=== PATIENT | female | born 1980 | race Two or more races ===

== ENCOUNTER 2016-10-29 19:58 | Inpatient (IN) | payer MEDICAID ==
[~2016-10-29] VITALS: Ht 149.9 cm; Wt 60.1 kg
[~2016-10-29 19:58] MED LIST: AMOX-263 PO
[2016-10-29 20:46] LABS: Urine RBC None Seen /hpf (0 - 4)
[2016-10-29 20:56] LABS: Basophils # (auto) 0.1 uL; Eosinophils # (auto) 0 uL; Eosinophils % (auto) 0.3 % (0.0-7.0); Hematocrit 34.2 % (36.0-46.0); Hemoglobin 11.5 g/dL (12.2-16.2); Mean Corpuscular Hemoglobin 28.9 pg (28.0-32.0); Mean Corpuscular Hgb Conc. 33.7 g/dL (32.0-36.0); Mean Corpuscular Volume 85.8 fL (80.0-100.0); Mean Platelet Volume 10.2 fL (7.4-10.4); Monocytes # (auto) 0.4 uL; Monocytes % (auto) 7.1 % (0.0-12.0); Neutrophils # (auto) 3.6 uL; Neutrophils % (auto) 58.6 % (37.0-80.0); Platelet Count (auto) 247 10^3/uL (140-450); Red Cell Distribution Width 13.6 % (11.6-16.0); White Blood Cell 6.2 10^3/uL (4.4-10.8)
[2016-10-29 21:03] LABS: Urine Bilirubin Negative (Negative); Urine Blood Negative /uL (Negative); Urine Color Yellow (Yellow); Urine Glucose Normal (Normal); Urine Ketone Negative (Negative); Urine Mucus FEW (None Seen); Urine Nitrite Negative (Negative); Urine Squamous Epithelial Cell FEW /hpf (<5)
[2016-10-29 21:19] LABS: Albumin 2.7 g/dL (3.4-5.0); BUN/Creatinine Ratio 16.3; Bilirubin, Total 0.1 mg/dL (0.2-1.0); Calcium 8.3 mg/dL (8.5-10.1); Magnesium 1.8 mg/dL (1.6-2.6); Potassium 3.6 mmol/L (3.5-5.1); Total Protein 6.4 g/dL (6.4-8.2)
[2016-10-30] MEDS ORDERED: SODIUM CHLORIDE 0.9% 1,000 ML IV ONE ×2 (02:00→04:30)
[2016-10-30] MEDS ORDERED: ONDANSETRON HCL 4 MG/2 ML VIAL IV ONE (02:00)
[2016-10-30] MEDS ORDERED: ACETAMINOPHEN 500 MG TAB PO PRN (04:30)
[2016-10-30] MEDS ORDERED: ONDANSETRON HCL 4 MG/2 ML VIAL IV PRN (04:30)
[2016-10-30] MEDS ORDERED: cefTRIAXone 1GM/50ML D5W 50 ML IV SCH (06:00)
[2016-10-30 06:27] VITALS: BP 106/61
[2016-10-30 09:00] VITALS: BP 106/61
[2016-10-30 13:00] VITALS: BP 106/58
[2016-10-30 14:40] VITALS: BP 106/58
== END 2016-10-30 15:20 | disposition home or self-care (01) | DRG 566 ==
LOC: ER 20:07 → OVERFLOW 20:08 → EAST 10-30 06:00
PROVIDERS: ADMIT Family Medicine; ATTEND Internal Medicine
DX: O99.612 Diseases of the digestive system complicating pregnancy, second trimester (principal); E44.1 Mild protein-calorie malnutrition; K80.20 Calculus of gallbladder without cholecystitis without obstruction; O25.12 Malnutrition in pregnancy, second trimester; O99.012 Anemia complicating pregnancy, second trimester; D64.9 Anemia, unspecified; O23.42 Unspecified infection of urinary tract in pregnancy, second trimester; K52.9 Noninfective gastroenteritis and colitis, unspecified; K86.1 Other chronic pancreatitis; O99.282 Endocrine, nutritional and metabolic diseases complicating pregnancy, second trimester; O26.852 Spotting complicating pregnancy, second trimester; E86.0 Dehydration; Z68.28 Body mass index [BMI] 28.0-28.9, adult; Z3A.16 16 weeks gestation of pregnancy; Z83.3 Family history of diabetes mellitus; Z82.49 Family history of ischemic heart disease and other diseases of the circulatory system; Z80.9 Family history of malignant neoplasm, unspecified; O09.32 Supervision of pregnancy with insufficient antenatal care, second trimester; O21.8 Other vomiting complicating pregnancy
CPT/HCPCS: 36415; 76705; 76805; 80053; 81001; 83690; 83735; 84702; 85025; 85049; 87086; 87088; 87186; 94761; 96361; 96374; J0696; J2405

== ENCOUNTER → 2016-11-20 | Outpatient (CLI) | payer MEDICAID ==
[2016-11-20 09:36] LABS: Basophils # (auto) 0 uL; Basophils % (auto) 0.3 % (0.0-2.0); Eosinophils # (auto) 0 uL; Eosinophils % (auto) 0.5 % (0.0-7.0); Hemoglobin 9.8 g/dL (12.2-16.2); Lymphocytes # (auto) 2.1 uL; Mean Corpuscular Hemoglobin 27.1 pg (28.0-32.0); Mean Corpuscular Hgb Conc. 31.7 g/dL (32.0-36.0); Mean Corpuscular Volume 85.4 fL (80.0-100.0); Mean Platelet Volume 10.9 fL (7.4-10.4); Monocytes # (auto) 0.4 uL; Neutrophils # (auto) 4.8 uL; Neutrophils % (auto) 65.2 % (37.0-80.0); Platelet Count (auto) 256 10^3/uL (140-450); Red Cell Distribution Width 13.8 % (11.6-16.0); White Blood Cell 7.4 10^3/uL (4.4-10.8)
== END | disposition home or self-care (01) ==
LOC: LAB 08:40
PROVIDERS: ATTEND Obstetrics & Gynecology
DX: Z34.80 Encounter for supervision of other normal pregnancy, unspecified trimester (principal); O99.810 Abnormal glucose complicating pregnancy
CPT/HCPCS: 36415; 82951; 83036; 84144; 84702; 85025; 86703; 86762; 86850; 86900; 86901; 87086; 87340; G0434

== ENCOUNTER 2017-01-20 13:20 | Observation (INO) | payer MEDICAID ==
[2017-01-20 14:20] LABS: Urine Bilirubin Negative (Negative); Urine Blood Negative /uL (Negative); Urine Color Yellow (Yellow); Urine Glucose Normal (Normal); Urine Ketone Negative (Negative); Urine Mucus FEW (None Seen); Urine Nitrite Negative (Negative); Urine RBC 1 /hpf (0 - 4); Urine Squamous Epithelial Cell FEW /hpf (<5); Urine Urobilinogen Normal (Negative); Urine pH 6.5 (5.0-8.0)
== END 2017-01-20 14:40 | disposition home or self-care (01) | DRG 566 ==
LOC: LDRP 13:20
PROVIDERS: ADMIT Obstetrics & Gynecology; ATTEND Obstetrics & Gynecology
DX: O26.892 Other specified pregnancy related conditions, second trimester (principal); R10.2 Pelvic and perineal pain; R10.30 Lower abdominal pain, unspecified; N89.8 Other specified noninflammatory disorders of vagina; Z3A.27 27 weeks gestation of pregnancy
CPT/HCPCS: 59025; 81001; 82962; G0378

== ENCOUNTER 2017-02-20 12:05 | Observation (INO) | payer MEDICAID ==
[~2017-02-20] VITALS: Ht 149.9 cm; Wt 69.9 kg
[2017-02-20] MEDS ORDERED: ACETAMINOPHEN 325 MG TAB PO ONE (13:15)
[2017-02-20 13:38] LABS: Urine Bilirubin Negative (Negative); Urine Blood Negative /uL (Negative); Urine Color Yellow (Yellow); Urine Glucose Normal (Normal); Urine Ketone Negative (Negative); Urine Nitrite Negative (Negative); Urine RBC <1 /hpf (0 - 4); Urine Squamous Epithelial Cell FEW /hpf (<5); Urine Urobilinogen Normal (Negative); Urine pH 6.5 (5.0-8.0)
== END 2017-02-20 14:30 | disposition home or self-care (01) | DRG 566 ==
LOC: LDRP 12:05
PROVIDERS: ADMIT Specialist; ATTEND Specialist
DX: O26.893 Other specified pregnancy related conditions, third trimester (principal); R51 Headache; R10.30 Lower abdominal pain, unspecified; Z3A.31 31 weeks gestation of pregnancy
CPT/HCPCS: 59025; 76805; 80307; 81001; 81002; 82962; 94760; G0378

== ENCOUNTER 2017-03-09 05:24 | Emergency (ER) | payer MEDICAID ==
[~2017-03-09] VITALS: Ht 149.9 cm; Wt 71.2 kg
[2017-03-09 05:30] VITALS: BP 122/68
[2017-03-09 06:28] LABS: Basophils # (auto) 0 uL; Basophils % (auto) 0.1 % (0.0-2.0); DEFINITIVE VIEW TRANSMISSION; Eosinophils # (auto) 0.1 uL; Eosinophils % (auto) 0.8 % (0.0-7.0); Hematocrit 32.2 % (36.0-46.0); Hemoglobin 10.4 g/dL (12.2-16.2); Lymphocytes # (auto) 3.2 uL; Lymphocytes % (auto) 34.4 % (10.0-50.0); Mean Corpuscular Hemoglobin 25.2 pg (28.0-32.0); Mean Corpuscular Hgb Conc. 32.2 g/dL (32.0-36.0); Mean Corpuscular Volume 78.5 fL (80.0-100.0); Mean Platelet Volume 10.8 fL (7.4-10.4); Monocytes # (auto) 0.5 uL; Monocytes % (auto) 4.9 % (0.0-12.0); Neutrophils # (auto) 5.5 uL; Neutrophils % (auto) 59.8 % (37.0-80.0); Platelet Count (auto) 284 10^3/uL (140-450); Red Cell Distribution Width 16.6 % (11.6-16.0); SUSPECT VIEW TRANSMISSION; White Blood Cell 9.3 10^3/uL (4.4-10.8)
[2017-03-09 06:41] LABS: Partial Thromboplastin Time 23.6 sec (22.64-33.71); Prothrombin Time 9.6 sec (9.37-12.3)
[2017-03-09 06:42] LABS: INR 0.88 (0.9-1.15)
[2017-03-09 06:45] LABS: Albumin 2.2 g/dL (3.4-5.0); Anion Gap 12 (5-15); Blood Urea Nitrogen 7 mg/dL (7-18); Calcium 8.9 mg/dL (8.5-10.1); Carbon Dioxide 20 mmol/L (21-32); Chloride 110 mmol/L (98-107); Glucose 99 mg/dL (74-106); Magnesium 1.8 mg/dL (1.6-2.6); Potassium 3.8 mmol/L (3.5-5.1); Sodium 142 mmol/L (136-145)
[2017-03-09 06:47] LABS: Aspartate Aminotransferase 21 U/L (15-37); BUN/Creatinine Ratio 10.9; GFR African American 136 mL/min; GFR Non-African American 112 mL/min
[2017-03-09 06:52] LABS: Alkaline Phosphatase 187 U/L (45-117); Bilirubin, Total 0.2 mg/dL (0.2-1.0); Total Protein 6.6 g/dL (6.4-8.2)
== END 2017-03-09 09:52 | disposition left against medical advice (07) ==
LOC: ER 05:25
DX: O26.893 Other specified pregnancy related conditions, third trimester (principal); R07.9 Chest pain, unspecified; Z3A.35 35 weeks gestation of pregnancy; Z53.21 Procedure and treatment not carried out due to patient leaving prior to being seen by health care provider
CPT/HCPCS: 36415; 80053; 83735; 84484; 84702; 85025; 85610; 85730; 93005

== ENCOUNTER 2017-03-12 23:24 | Observation (INO) | payer MEDICAID | END 2017-03-13 01:04 | disposition home or self-care (01) | DRG 566 | LOC: LDRP 23:24 | PROVIDERS: ADMIT Specialist; ATTEND Specialist | DX: O42.913 Preterm premature rupture of membranes, unspecified as to length of time between rupture and onset of labor, third trimester (principal); Z3A.34 34 weeks gestation of pregnancy | CPT/HCPCS: 59025; 76805; 81002; 82948; 82962; G0378 ==

== ENCOUNTER 2018-07-12 13:31 | Observation (INO) | payer MEDICAID ==
[~2018-07-12] VITALS: Ht 149.9 cm; Wt 60.3 kg
[2018-07-12 14:30] LABS: Basophils # (auto) 0 uL; Basophils % (auto) 0.5 % (0.0-2.0); Eosinophils # (auto) 0 uL; Eosinophils % (auto) 0.1 % (0.0-7.0); Hematocrit 39.6 % (36.0-46.0); Hemoglobin 12.6 g/dL (12.2-16.2); Lymphocytes # (auto) 1.4 uL; Lymphocytes % (auto) 33.4 % (10.0-50.0); Mean Corpuscular Hemoglobin 27.9 pg (28.0-32.0); Mean Corpuscular Hgb Conc. 31.9 g/dL (32.0-36.0); Mean Corpuscular Volume 87.4 fL (80.0-100.0); Monocytes # (auto) 0.3 uL; Monocytes % (auto) 7.8 % (0.0-12.0); Neutrophils # (auto) 2.5 uL; Neutrophils % (auto) 58.2 % (37.0-80.0); Platelet Count (auto) 259 10^3/uL (140-450); Red Blood Cells 4.53 10^6/uL (4.0-5.20); White Blood Cell 4.3 10^3/uL (4.4-10.8)
[2018-07-12 14:33] LABS: Urine WBC None Seen /hpf (0 - 5)
[2018-07-12 14:49] LABS: Albumin 3.5 g/dL (3.4-5.0); BUN/Creatinine Ratio 14.5; Bilirubin, Total 0.3 mg/dL (0.2-1.0); Calcium 8.1 mg/dL (8.5-10.1); Potassium 3.6 mmol/L (3.5-5.1); Total Protein 7.6 g/dL (6.4-8.2)
[2018-07-12 14:52] LABS: Urine Amorphous Crystal MANY /hpf (None Seen); Urine Bacteria NONE SEEN /hpf (None Seen); Urine Blood 1+ /uL (Negative); Urine Mucus FEW (None Seen); Urine Specific Gravity 1.034 (1.001-1.035)
[2018-07-12 14:54] LABS: Amphetamine Screen, Urine NEGATIVE (NEGATIVE); Barbiturate Scree,Urine NEGATIVE (NEGATIVE); Benzodiazephine Screen, Urine NEGATIVE (NEGATIVE); Cannabinoid Screen, Urine NEGATIVE (NEGATIVE); Cocaine Screen, Urine NEGATIVE (NEGATIVE); Opiate Scree,Urine NEGATIVE (NEGATIVE); Phencyclidine Screen, Urine NEGATIVE (NEGATIVE)
[2018-07-12] MEDS ORDERED: SODIUM CHLORIDE 0.9% 1,000 ML IVB ONE (16:14)
[2018-07-12] MEDS ORDERED: KETOROLAC TROMETH 30 MG/ML 1ML VIAL IV ONE (16:15)
[2018-07-12] MEDS ORDERED: ONDANSETRON HCL 4 MG/2 ML VIAL IV ONE (16:15)
[2018-07-12 17:29] LABS: Amylase 65 U/L (25-115); Lipase 177 U/L (73-393)
[2018-07-12 21:28] VITALS: BP 110/78
== END 2018-07-12 21:28 | disposition home or self-care (01) | DRG 249 ==
LOC: ER 13:37 → OVERFLOW 13:38 → ER 21:28
PROVIDERS: ADMIT Family Medicine; ATTEND Family Medicine
DX: K52.9 Noninfective gastroenteritis and colitis, unspecified (principal); K80.20 Calculus of gallbladder without cholecystitis without obstruction; F15.10 Other stimulant abuse, uncomplicated; N39.0 Urinary tract infection, site not specified; Z82.49 Family history of ischemic heart disease and other diseases of the circulatory system; Z83.3 Family history of diabetes mellitus
CPT/HCPCS: 36415; 71046; 80053; 80307; 81001; 82150; 83690; 85025; 96361; 96374; 96375; G0378; J1885; J2405

== ENCOUNTER 2020-07-24 03:03 | Emergency (ER) | payer MEDICAID ==
[~2020-07-24] VITALS: Ht 149.9 cm; Wt 63.5 kg
[2020-07-24] MEDS ORDERED: KETOROLAC TROMETH 60MG/2ML VIAL IM ONE (03:45)
[2020-07-24 06:38] VITALS: BP 158/81
[2020-07-24] MEDS ORDERED: ACETAMINOPHEN 500 MG TAB PO ONE (10:44)
== END 2020-07-24 07:35 | disposition left against medical advice (07) ==
LOC: ER 03:08
DX: R07.89 Other chest pain (principal); Z53.21 Procedure and treatment not carried out due to patient leaving prior to being seen by health care provider
CPT/HCPCS: 93005

== ENCOUNTER 2020-11-07 13:42 | Emergency (ER) | payer MEDICAID ==
[~2020-11-07] VITALS: Ht 149.9 cm; Wt 68.0 kg
[2020-11-07 13:44] VITALS: BP 114/81
[2020-11-07] MEDS ORDERED: ONDANSETRON HCL 4 MG/2 ML VIAL IV ONE (14:15)
[2020-11-07] MEDS ORDERED: MORPHINE SULFATE 4 MG/ML SYR/VIAL IV ONE (14:15)
== END 2020-11-07 16:05 | disposition left against medical advice (07) ==
LOC: ER 13:42
DX: R10.11 Right upper quadrant pain (principal); F15.10 Other stimulant abuse, uncomplicated; Z87.440 Personal history of urinary (tract) infections

== ENCOUNTER 2024-05-16 09:12 | Inpatient (IN) | payer MEDICAID ==
[~2024-05-16] VITALS: Ht 149.9 cm; Wt 79.5 kg
[2024-05-16 09:40] LABS: Urine Bacteria None Seen /hpf (None Seen)
[2024-05-16 09:57] LABS: Urine Blood Negative /uL (Negative); Urine Clarity Clear (Clear); Urine Color Yellow (Yellow); Urine Mucus FEW (None Seen); Urine Protein, UAD TRACE (Negative); Urine Specific Gravity 1.026 (1.001-1.035); Urine Urobilinogen 3 mg/dL (Negative); Urine WBC 1 /hpf (0 - 5)
[2024-05-16 10:03] VITALS: PULSE 53; RESP 11; O2SAT 98
[2024-05-16] MEDS ORDERED: ACETAMINOPHEN 325 MG TAB PO PRN (13:00)
[2024-05-16] MEDS ORDERED: HYDROmorphone HCL 2 MG/ML VL/or syr IV PRN (13:00)
[2024-05-16] MEDS ORDERED: DOCUSATE SOD 100 MG CAP PO PRN (13:00)
[2024-05-16] MEDS ORDERED: NITROGLYCERIN 0.4 MG SL TAB SL PRN (13:00)
[2024-05-16 13:36] LABS: Hematocrit 43.3 % (36.0-46.0); Hemoglobin 14.7 g/dL (12.2-16.2); Mean Corpuscular Hemoglobin 30.1 pg (28.0-32.0); Mean Corpuscular Hgb Conc. 33.8 g/dL (32.0-36.0); Red Blood Cells 4.87 10^6/uL (4.0-5.20); Red Cell Distribution Width 14.8 % (11.8-14.3); White Blood Cell 3.5 10^3/uL (4.4-10.8)
[2024-05-16] MEDS: HYDROcodone-ACET 5/325MG TAB PO PRN (13:36)
[2024-05-16 13:38] LABS: Band Neutrophils % (manual) 0; Basophils % (manual) 0 (0.0-2.0); Blast Cells 0; Metamyelocytes % 0; Myelocytes % 0; Promyelocytes % 0
[2024-05-16 13:46] LABS: Alanine Aminotransferase 107 U/L (7-40); Albumin 4.1 g/dL (3.2-4.8); Alkaline Phosphatase 138 U/L (46-116); Anion Gap 7 (5-15); Aspartate Aminotransferase 115 U/L (13-40); BUN/Creatinine Ratio 8.5 (10.0-20.0); Bilirubin, Total 0.4 mg/dL (0.2-1.0); Blood Urea Nitrogen 6 mg/dL (9-23); Calcium 8.9 mg/dL (8.7-10.4); Carbon Dioxide 26 mmol/L (20-30); Chloride 110 mmol/L (98-107); Glucose 111 mg/dL (74-106); INR 0.98 (0.9-1.15); Potassium 3.5 mmol/L (3.5-5.1); Prothrombin Time 10.4 sec (9.3-11.8); Sodium 143 mmol/L (136-145); Total Protein 6.6 g/dL (5.7-8.2)
[2024-05-16 13:54] LABS: Eosinophils % (manual) 1 (0-7); Lymphocytes % (manual) 62 (10.0-50.0); Monocytes % (manual) 10 (0-12); Platelet Estimate Adequate; RBC Morphology Normal; Reactive Lymphocytes 5
[2024-05-16] MEDS: SODIUM CHLOR 0.9% PF (SALINE LOCK) 10ML VIAL/SYR IV SCH (14:07)
[2024-05-16 14:32] LABS: Magnesium 1.8 mg/dL (1.6-2.6)
[2024-05-16 16:31] VITALS: BP 116/72; PULSE 53; RESP 17; TEMP 97.5; O2SAT 95
[2024-05-16] MEDS: MORPHINE SULFATE INJ 2 MG/ml SYRG IV PRN (16:43)
[2024-05-16 16:57] LABS: Amphetamine Screen, Urine Neg (NEGATIVE); Barbiturate Scree,Urine Neg (NEGATIVE); Benzodiazephine Screen, Urine Neg (NEGATIVE); Cannabinoid Screen, Urine Neg (NEGATIVE); Cocaine Screen, Urine Neg (NEGATIVE); Opiate Scree,Urine Neg (NEGATIVE); Phencyclidine Screen, Urine Neg (NEGATIVE)
[2024-05-16 20:00] VITALS: PULSE 54; RESP 16; O2SAT 97
[2024-05-17] VITALS (12 sets, daily range): BP systolic 107–140; BP diastolic 67–89; PULSE 53–62; RESP 16–20; TEMP 97.7–98.2; O2SAT 93–98
[2024-05-17 07:18] LABS: Hemoglobin 14.2 g/dL (12.2-16.2); Mean Corpuscular Hemoglobin 30.3 pg (28.0-32.0); Mean Corpuscular Hgb Conc. 33.8 g/dL (32.0-36.0); Mean Corpuscular Volume 89.7 fL (80.0-100.0); Red Blood Cells 4.68 10^6/uL (4.0-5.20); Red Cell Distribution Width 14.8 % (11.8-14.3); White Blood Cell 4.6 10^3/uL (4.4-10.8)
[2024-05-17 07:22] LABS: Band Neutrophils % (manual) 0; Basophils % (manual) 0 (0.0-2.0); Blast Cells 0; Eosinophils % (manual) 0 (0-7); Metamyelocytes % 0; Myelocytes % 0; Promyelocytes % 0
[2024-05-17 07:28] LABS: Anion Gap 8 (5-15); Carbon Dioxide 26 mmol/L (20-30); Chloride 106 mmol/L (98-107); Potassium 3.5 mmol/L (3.5-5.1); Sodium 140 mmol/L (136-145)
[2024-05-17 07:29] LABS: Calcium 8.8 mg/dL (8.7-10.4)
[2024-05-17 07:34] LABS: Blood Urea Nitrogen 8 mg/dL (9-23); Glucose 123 mg/dL (74-106)
[2024-05-17 08:09] LABS: Lymphocytes % (manual) 66 (10.0-50.0); Monocytes % (manual) 6 (0-12); Reactive Lymphocytes 12
[2024-05-17 08:10] LABS: Platelet Estimate Adequate
[2024-05-17] MEDS: ENOXAPARIN SOD 40 MG/0.4 ML SYRINGE SC SCH (09:27)
[2024-05-17 11:43] LABS: Albumin 3.9 g/dL (3.2-4.8); Bilirubin, Direct 0.2 mg/dL (<0.3); Bilirubin, Total 0.4 mg/dL (0.2-1.0); Total Protein 6.6 g/dL (5.7-8.2)
[2024-05-17] MEDS: LIDOCAINE 2%HCL (LOCAL ANESTH.) INJ 20ML MDV ONE (12:25)
[2024-05-17] MEDS: VERAPAMIL 2.5MG/ML INJ 2ML VIAL IV ONE (12:32)
[2024-05-17] MEDS: HEPARIN SODIUM (PORCINE) 5000 UNITS/ML 1ML VIAL ONE (12:32)
[2024-05-17] MEDS: MIDAZOLAM HCL 2MG/2ML 2ml VIAL (1mg/ml) ONE (12:32)
[2024-05-17] MEDS: ANGIOMAX 250 MG VIAL IV ONE (12:32)
[2024-05-17] MEDS: fentaNYL CITRATE 100 MCG/2 ML VL ONE (12:32)
[2024-05-17] MEDS: SODIUM CHL 0.9% 0 ML ONE (12:32)
[2024-05-17] MEDS: IODIXANOL 320MG/ML 100ML BTL IV ONE (12:38)
[2024-05-17] MEDS: ONDANSETRON HCL 4 MG/2 ML VIAL IV PRN (15:34)
[2024-05-18 01:00] VITALS: BP 112/63; PULSE 61; RESP 16; TEMP 98.3; O2SAT 100
[2024-05-18 05:00] VITALS: BP 98/61; PULSE 65; RESP 18; TEMP 98.2; O2SAT 96
[2024-05-18 08:00] VITALS: PULSE 54; PULSE 56; RESP 18; O2SAT 99
[2024-05-18 09:00] VITALS: BP 117/69; PULSE 56; RESP 16; TEMP 97.8; O2SAT 99
[2024-05-18 09:38] LABS: Hepatitis B Core Total AB React (Negative)
[2024-05-18] MEDS: POTASSIUM CHL 20 Meq TABLET PO ONE (10:33)
[2024-05-18] MEDS: MAGNESIUM OXIDE 400 MG TAB PO ONE (10:33)
[2024-05-18 11:40] LABS: Hepatitis A Total Antibody Positive (Negative); Hepatitis B Surface Antibody Negative (Negative); Hepatitis B Surface Antigen Negative (Negative)
[2024-05-18 11:41] LABS: Hepatitis C Antibody Negative (Negative)
[2024-05-18 13:00] VITALS: BP 136/76; PULSE 59; RESP 18; TEMP 98.2; O2SAT 98
[2024-05-18 16:00] VITALS: BP 136/76; PULSE 59; RESP 18; TEMP 98.2; O2SAT 98
== END 2024-05-18 16:56 | disposition home or self-care (01) | DRG 191 ==
LOC: ER 09:12 → TELE 12:53 → TELE-WESTW 14:52
PROVIDERS: ADMIT Internal Medicine; ATTEND Nurse Practitioner Acute Care
PROC: B211YZZ Fluoroscopy of Multiple Coronary Arteries using Other Contrast (ICD-10-PCS; principal; 2024-05-17)
PROC: 4A023N7 Measurement of Cardiac Sampling and Pressure, Left Heart, Percutaneous Approach (ICD-10-PCS; 2024-05-17)
DX: I24.81 Acute coronary microvascular dysfunction (principal); N17.0 Acute kidney failure with tubular necrosis; K74.60 Unspecified cirrhosis of liver; E11.9 Type 2 diabetes mellitus without complications; E66.9 Obesity, unspecified; R74.01 Elevation of levels of liver transaminase levels; F15.10 Other stimulant abuse, uncomplicated; I45.10 Unspecified right bundle-branch block; R00.1 Bradycardia, unspecified; Z79.2 Long term (current) use of antibiotics; Z79.899 Other long term (current) drug therapy; Z98.891 History of uterine scar from previous surgery; Z83.3 Family history of diabetes mellitus; Z82.49 Family history of ischemic heart disease and other diseases of the circulatory system; Z82.3 Family history of stroke; Z87.440 Personal history of urinary (tract) infections; Z68.35 Body mass index [BMI] 35.0-35.9, adult
CPT/HCPCS: 36415; 71045; 76705; 80048; 80053; 80061; 80076; 80307; 81001; 83036; 83735; 84443; 84484; 84702; 85007; 85027; 85610; 86704; 86706; 86708; 86803; 87340; 93005; 93306; 93458; 99152; G0378; J2250; J2405; Q9967

== ENCOUNTER 2024-08-09 17:40 | Inpatient (IN) | payer MEDICAID ==
[~2024-08-09] VITALS: Ht 149.9 cm; Wt 79.5 kg
[2024-08-09 18:13] LABS: Basophils # (auto) 0 10 ^3/uL (0-0.2); Basophils % (auto) 0.5 % (0.0-2.0); Eosinophils # (auto) 0 10 ^3/uL (0-0.8); Eosinophils % (auto) 0.6 % (0.0-7.0); Hematocrit 43.9 % (36.0-46.0); Lymphocytes # (auto) 3.3 10 ^3/uL (0.4-5.4); Lymphocytes % (auto) 52.1 % (10.0-50.0); Mean Corpuscular Hgb Conc. 34.2 g/dL (32.0-36.0); Mean Corpuscular Volume 90.6 fL (80.0-100.0); Monocytes # (auto) 0.3 10 ^3/uL (0-1.3); Monocytes % (auto) 5.4 % (0.0-12.0); Neutrophils # (auto) 2.6 10 ^3/uL (1.6-8.6); Neutrophils % (auto) 41.4 % (37.0-80.0); Nucleated Red Blood Cells % 0.2 %; Platelet Count (auto) 185 10^3/uL (140-450); Red Blood Cells 4.84 10^6/uL (4.0-5.20); Red Cell Distribution Width 15.2 % (11.8-14.3); White Blood Cell 6.3 10^3/uL (4.4-10.8)
[2024-08-09 18:30] LABS: Alanine Aminotransferase 32 U/L (7-40); Albumin 4.2 g/dL (3.2-4.8); Alkaline Phosphatase 116 U/L (46-116); Anion Gap 6 (5-15); Aspartate Aminotransferase 26 U/L (13-40); BUN/Creatinine Ratio 10.2 (10.0-20.0); Blood Urea Nitrogen 9 mg/dL (9-23); Calcium 9.5 mg/dL (8.7-10.4); Carbon Dioxide 26 mmol/L (20-31); Chloride 111 mmol/L (98-107); Glucose 117 mg/dL (74-106); Potassium 3.5 mmol/L (3.5-5.1); Sodium 143 mmol/L (136-145)
[2024-08-09 18:31] LABS: Bilirubin, Total 0.3 mg/dL (0.2-1.0); Total Protein 7.1 g/dL (5.7-8.2)
[2024-08-09 18:47] LABS: Urine Amorphous Crystal FEW /hpf (None Seen); Urine Bacteria FEW /hpf (None Seen); Urine Blood Negative /uL (Negative); Urine Clarity Turbid (Clear); Urine Color Light-Yellow (Yellow); Urine Protein, UAD TRACE (Negative); Urine Specific Gravity 1.022 (1.001-1.035); Urine Urobilinogen Normal (Negative); Urine WBC 7 /hpf (0 - 5); Urine pH 6.5 (5.0-9.0)
[2024-08-09 20:16] VITALS: PULSE 77; RESP 16; O2SAT 95
[2024-08-09] MEDS: ASPirin 325 MG TAB PO ONE (20:19)
[2024-08-09] MEDS: NITROGLYCERIN 0.4 MG SL TAB SL ONE (20:20)
[2024-08-09] MEDS ORDERED: DEXTROSE (50%) 50ML SYRG IV PRN (21:15)
[2024-08-09] MEDS ORDERED: ONDANSETRON HCL 4 MG/2 ML VIAL IV PRN (21:15)
[2024-08-09] MEDS ORDERED: ACETAMINOPHEN 325 MG TAB PO PRN (21:15)
[2024-08-09] MEDS ORDERED: TEMAZEPAM 15 MG CAP PO PRN (21:15)
[2024-08-09 21:40] LABS: Triglycerides 240 mg/dL (< 150)
[2024-08-09 21:41] LABS: LDL Cholesterol 67 mg/dL (< 100)
[2024-08-09 21:42] LABS: Cholesterol 133 mg/dL (< 200); HDL Cholesterol 47 mg/dL (40-59)
[2024-08-09] MEDS: InsuLIN REG 1unit/0.01ml Soln (100units/ml) SC SCH (22:28)
[2024-08-09] MEDS: ACCU-CHEK COMFORT CURVE STRIP VI SCH (22:45)
[2024-08-09] MEDS: ATORVASTATIN 20 MG TAB PO SCH (23:17)
[2024-08-10] VITALS (8 sets, daily range): BP systolic 110–140; BP diastolic 66–84; PULSE 51–72; RESP 15–20; TEMP 96.7–98.2; O2SAT 94–98
[2024-08-10] MEDS: MORPHINE SULFATE INJ 2 MG/ml SYRG IV PRN (01:34)
[2024-08-10] MEDS ORDERED: ROSU10TA16 PO (02:26)
[2024-08-10] MEDS ORDERED: PIOG15TA25 PO (02:26)
[2024-08-10 06:47] LABS: Chloride 111 mmol/L (98-107); Potassium 3.3 mmol/L (3.5-5.1); Sodium 144 mmol/L (136-145)
[2024-08-10 06:48] LABS: Anion Gap 6 (5-15); Carbon Dioxide 27 mmol/L (20-31)
[2024-08-10 06:53] LABS: BUN/Creatinine Ratio 12.4 (10.0-20.0); Blood Urea Nitrogen 11 mg/dL (9-23); Glucose 130 mg/dL (74-106)
[2024-08-10] MEDS: ASPirin 81 mg TAB PO SCH (08:39)
[2024-08-10] MEDS: LISINOPRIL 5 MG TAB PO SCH (08:42)
[2024-08-10 08:55] LABS: Amphetamine Screen, Urine Neg (NEGATIVE); Barbiturate Scree,Urine Neg (NEGATIVE); Benzodiazephine Screen, Urine Neg (NEGATIVE); Cocaine Screen, Urine Neg (NEGATIVE); Opiate Scree,Urine Neg (NEGATIVE); Phencyclidine Screen, Urine Neg (NEGATIVE)
[2024-08-10 08:56] LABS: Cannabinoid Screen, Urine Neg (NEGATIVE)
[2024-08-10] MEDS: NITROGLYCERIN 0.4 MG SL TAB SL PRN (09:38)
[2024-08-10 12:31] LABS: Hepatitis B Surface Antigen Negative (Negative)
[2024-08-10 12:51] LABS: Hepatitis C Antibody Negative (Negative)
[2024-08-10] MEDS ORDERED: dilTIAZem 120MG ER CAP PO ONE (13:15)
[2024-08-10] MEDS: ISOSORBIDE MONONITRATE 20 MG TAB PO ONE (15:50)
[2024-08-10] MEDS ORDERED: NITR0.4S29 SL (17:47)
[2024-08-10] MEDS ORDERED: PANT40TA2 PO (17:47)
[2024-08-10] MEDS ORDERED: LISI-275 PO (17:47)
[2024-08-10] MEDS ORDERED: ASPI1TAB19 PO (17:47)
[2024-08-10] MEDS ORDERED: ISO20T PO (17:47)
[2024-08-10] MEDS ORDERED: ISOSORBIDE MONONITRATE 20 MG TAB PO SCH (22:00)
[2024-08-11] MEDS ORDERED: dilTIAZem 120MG ER CAP PO SCH (10:00)
== END 2024-08-10 20:35 | disposition home or self-care (01) | DRG 198 ==
LOC: ER 17:40 → TELE 21:12 → TELE-EAST 21:16 → TELE 21:16 → TELE-EAST 23:40
PROVIDERS: ADMIT Nurse Practitioner; ATTEND Student in an Organized Health Care Education/Training Program
DX: I25.111 Atherosclerotic heart disease of native coronary artery with angina pectoris with documented spasm (principal); K74.60 Unspecified cirrhosis of liver; E11.9 Type 2 diabetes mellitus without complications; K21.9 Gastro-esophageal reflux disease without esophagitis; I10 Essential (primary) hypertension; E78.5 Hyperlipidemia, unspecified; Z82.49 Family history of ischemic heart disease and other diseases of the circulatory system; Z82.3 Family history of stroke; Z82.0 Family history of epilepsy and other diseases of the nervous system; Z90.49 Acquired absence of other specified parts of digestive tract; Z83.3 Family history of diabetes mellitus; Z86.16 Personal history of COVID-19
CPT/HCPCS: 36415; 71045; 80048; 80053; 80061; 80307; 81001; 82962; 84484; 85025; 85379; 86803; 87340; 93005; 99291; G0378